=== PATIENT | male | born 1955 | race Caucasian/White ===

== ENCOUNTER 2018-04-06 14:52 | Observation (INO) | payer BC, OTHER ==
[2018-04-06] MEDS ORDERED: ASPIRIN 81 MG CHEWABLE TABLET PO ONE (15:02)
[2018-04-06] MEDS ORDERED: 0.9 % SODIUM CHLORIDE 1000ML 1,000 ML IV PRN (15:02)
--- NOTE | 2018-04-06 15:08 | Emergency Department Record ---
History of Present Illness - General Chief Complaint: Chest Pain Stated Complaint: CHEST PAIN Time Seen by Provider: 04/06/18 14:56 Source: Patient, Family () Mode of Arrival: Ambulatory - History of Present Illness Initial Comments: Pt with from home with CP onset yesterday. Epigastric to left chest with radiation to left jaw and shoulder. Mild AMY without diaphoresis. Worse this AM when tending to his horses in the barn. Pt has hx of untreated "elevated BP ", no DM, No Tobacco, no fam hx of cardiac disease. He had cardiac cath at [facility] 10 years ago without significant disease. Pain is 5 of 10 currently and was 7 of 10 at max. EKG on arrival without ST elevation. MD Complaint: Chest pain Onset/Timin -: Days(s) Onset: During rest Pain Location: Left chest Pain Radiation: Back Severity: Mild Severity scale (1-10): 5 Quality: Aching Consistency: Constant Improves With: Nothing Worsens With: Nothing Anginal Symptoms: Dyspnea, Nausea Treatments Prior to Arrival: Aspirin - Related Data Home Medications Medication Instructions Recorded Confirmed Last Taken Aloe Vera 25 mg PO DAILY 04/06/18 04/06/18 04/06/18 Aspirin [Aspir-Low] 81 mg PO DAILY 04/06/18 04/06/18 04/06/18 Allergies Allergy/AdvReac Type Severity Reaction Status Date / Time No Known Drug Allergies Allergy Verified 04/06/18 14:54 Travel Screening - Travel/Exposure Within Last 30 Days Have you traveled within the last 30 days?: No Review of Systems Constitutional: Denies: Chills, Fever, Malaise Eyes: Denies: Eye discharge, Photophobia ENT: Denies: Congestion, Dental pain Respiratory: Reports: Dyspnea. Denies: Cough, Hemoptysis, Wheezes Cardiovascular: Reports: Chest pain. Denies: Arrhythmia, Dyspnea on exertion, Palpitations, Syncope Endocrine: Denies: Fatigue, Heat or cold intolerance Gastrointestinal: Denies: Abdominal pain, Constipation, Diarrhea Genitourinary: Denies: Discharge Musculoskeletal: Reports: Back pain Skin: Denies: Bruising Neurological: Denies: Abnormal gait Psychiatric: Denies: Anxiety Hematological/Lymphatic: Denies: Anemia Past Medical History - SOCIAL HISTORY Smoking Status: Never smoker Alcohol Use: None Drug Use: None - RESPIRATORY Hx Respiratory Disorders: No - CARDIOVASCULAR Hx Cardio Disorders: Yes Hx Cardiac Cath: Yes Hx Chest Pain: Yes Hx Hypertension: Yes - NEURO Hx Neuro Disorders: No - GI Hx GI Disorders: No - Hx Genitourinary Disorders: No - ENDOCRINE Hx Endocrine Disorders: No - MUSCULOSKELETAL Hx Musculoskeletal Disorders: No - PSYCH Hx Psych Problems: No - HEMATOLOGY/ONCOLOGY Hx Hematology/Oncology Disorders: No Family Medical History Any Significant Family History?: No Physical Exam - General General Appearance: Alert, Oriented x3, Cooperative, Mild distress Limitations: No limitations - Head Head exam: Atraumatic - Eye Eye exam: Normal appearance, PERRL, EOMI - ENT ENT exam: Normal exam, Mucous membranes moist, Normal external ear exam, Normal orophraynx, TM's normal bilaterally - Neck Neck exam: Normal inspection. negative: Lymphadenopathy, Tenderness - Respiratory Respiratory exam: Normal lung sounds bilaterally. negative: Respiratory distress, Rhonchi - Cardiovascular Cardiovascular Exam: Regular rate, Normal rhythm, Normal heart sounds. negative : Tachycardia Peripheral Pulses: 2+: Radial (R), Radial (L), Dorsalis Pedis (R), Dorsalis Pedis (L) - GI/Abdominal GI/Abdominal exam: Soft, Normal bowel sounds. negative: Tenderness - exam: Deferred - Extremities Extremities exam: Normal inspection. negative: Pedal edema, Tenderness - Back Back exam: Reports: Normal inspection. Denies: Paraspinal tenderness - Neurological Neurological exam: Alert, CN II-XII intact, Normal gait, Oriented X3 - Psychiatric Psychiatric exam: Normal affect, Normal mood. negative: Anxious - Skin Skin exam: Normal color. negative: Rash Course Vital Signs 04/06/18 14:56 Pulse Rate 86 Respiratory 16 Rate Blood Pressure 143/85 Pulse Ox 98 Procedures - EKG Initial Date: 04/06/18 Time: 15:07 EKG: Abnormal EKG EKG Detail: RBBB at SR 69. No ST elevation Medical Decision Making - Management Options MDM Management: Additional Work-up Planned (e.g. ADM/Transfer/OP Study) - Data Complexity MDM Data: Labs Ordered and/or Reviewed, X-Ray Ordered and/or Reviewed, EKG Ordered and/or Reviewed - Lab Data Result diagrams: 04/06/18 14:57 04/06/18 15:08 - EKG Data -: EKG Interpreted by Me EKG: Abnormal EKG - Radiology Data Radiology results: Report reviewed, Image reviewed - Medical Decision Making Admission for serial cardiac enzymes and cardiology consultation. Pt and aware of findings and plan Disposition Disposition: Admit Clinical Impression: Chest pain Qualifiers: Chest pain type: precordial pain Qualified Code(s): R07.2 - Precordial pain Disposition: Still a Patient at [facility] Decision to Admit: Admit from ER Decision to Admit Date: 04/06/18 Decision to Admit Time: 16:13 Accepting Physician: Dr. Painting Time Discussed w/Accepting Physician: 16:13 (ABEL Scott) Condition: (2) Stable Forms: Patient Portal Access Quality - Quality Measures Quality Measures: N/A - Blood Pressure Screening Does Patient Have Any of the Following: No Blood Pressure Classification: Pre-Hypertensive BP Reading Systolic Measurement: 143 Diastolic Measurement: 85 Screening for High Blood Pressure: < Pre-Hypertensive BP, F/U Documented > [ G8950] Pre-Hypertensive Follow-up Interventions: Follow-up with rescreen every year.
[2018-04-06] MEDS: NITROGLYCERIN 0.4MG SL TABLET #25 BTL SL PRN ×2 (15:09→15:33)
[2018-04-06 15:11] LABS: HEMATOCRIT 42.9 % (42.0-52.0); HEMOGLOBIN 14.2 gm/dl (14.0-18.0); MEAN CELL VOLUME 87.4 fl (81-97); MEAN CORPUSCULAR HEMOGLOBIN 28.9 pg (27-33); MEAN CORPUSCULAR HGB CONC 33.1 g/dl (32-36); MEAN PLATELET VOLUME 9.4 fl (7.4-10.4); PLATELET COUNT 216 K/uL (130-400); RED BLOOD COUNT 4.91 M/uL (4.40-5.70); RED CELL DISTRIBUTION WIDTH 13.5 % (11.5-14.5); WHITE BLOOD COUNT W/O DIFF 11.3 K/uL (4.2-12.2)
[2018-04-06 15:20] LABS: BLOOD UREA NITROGEN 15 mg/dL (8-23); CREATININE 0.8 mg/dL (0.7-1.2); EST GLOMERULAR FILTRATION RATE > 60 mL/min
[2018-04-06 15:21] LABS: TOTAL PROTEIN 6.9 g/dL (6.6-8.7)
[2018-04-06 15:23] LABS: GLUCOSE,RANDOM 92 mg/dL (74-109)
[2018-04-06 15:24] LABS: INR 1.1; PARTIAL THROMBOPLASTIN TIME 29.3 SECONDS (24.5-39.1); PROTHROMBIN TIME (PATIENT) 10.9 SECONDS (9.5-12.1)
[2018-04-06 15:25] LABS: ALT/SGPT 36 U/L (<41); AST/SGOT 28 U/L (10.0-50.0)
[2018-04-06 15:26] LABS: ALB/GLOB RATIO 1.5 (1.1-1.8); ALBUMIN 4.1 g/dL (4.0-5.0); ALKALINE PHOSPHATASE 89 U/L (40-129)
[2018-04-06 15:36] LABS: THYROID STIMULATING HORMONE 1.69 uIU/mL (0.270-4.20)
[2018-04-06] MEDS ORDERED: ACETAMINOPHEN 325 MG TAB PO PRN (21:47)
[2018-04-07 05:05] LABS: HEMATOCRIT 41.2 % (42.0-52.0); HEMOGLOBIN 13.5 gm/dl (14.0-18.0); MEAN CELL VOLUME 87.7 fl (81-97); MEAN CORPUSCULAR HEMOGLOBIN 28.7 pg (27-33); MEAN CORPUSCULAR HGB CONC 32.8 g/dl (32-36); MEAN PLATELET VOLUME 9.4 fl (7.4-10.4); PLATELET COUNT 205 K/uL (130-400); RED CELL DISTRIBUTION WIDTH 13.4 % (11.5-14.5); WHITE BLOOD COUNT W/O DIFF 9.9 K/uL (4.2-12.2)
[2018-04-07 05:32] LABS: BLOOD UREA NITROGEN 13 mg/dL (8-23); CHOLESTEROL 172 mg/dL (<200); CREATININE 0.7 mg/dL (0.7-1.2); EST GLOMERULAR FILTRATION RATE > 60 mL/min; GLUCOSE,RANDOM 121 mg/dL (74-109); HDL CHOLESTEROL 41 mg/dL (40-60); TRIGLYCERIDES 80 mg/dL (<150); VLDL CHOLESTEROL 16 mg/dL (10.00-40.00)
[2018-04-07 05:41] LABS: PLATELET ESTIMATE NORMAL (NORMAL)
--- NOTE | 2018-04-07 07:44 | RADIOLOGY REPORT ---
EXAM: PORTABLE CHEST HISTORY: CHEST PAIN TODAY. TECHNIQUE: A single portable AP upright view of the chest was performed. Comparison: 05/01/10. FINDINGS: The heart, mediastinum, and pulmonary vasculature are normal. There is minor linear atelectasis or scarring at both lung bases. There are no acute infiltrates or effusions. There is no pneumothorax. There are old healed left clavicle and left upper rib fractures. There are no acute osseous abnormalities. IMPRESSION: NO ACUTE CHEST PATHOLOGY. JOB NUMBER: [id number] [facility] [place]
--- NOTE | 2018-04-07 09:51 | History & Physical ---
History of Present Illness - Date of Service Date of Service for History & Physical: 04/07/18 - History of Present Illness Admitting Diagnosis: Acute Chest Pain History of Present Illness: Jostin Rucker is a 63 year old male who presented to the ER on 04/06 complaining of left sided chest pain radiating to left arm and jaw, combined with numbness, shortness of breath, diaphoresis, severe headache, and vision changes. He stated that his symptoms first began the night before with some dizziness and initial pain and pressure in his chest that prevented him from sleeping. In the morning, his symptoms were greatly exacerbated while doing his morning barn chores and walking up a hill, prompting him to come in to the ER. Prior to his arrival to the ER, he had taken his daily aspirin and some Aleve, which he stated relieved some of his pain. Patient has a history of uncontrolled hypertension, which he states "just got away from him." His only prior episode of chest pain occured eleven years ago, and at that time he had a cardiac cath that showed no evidence of disease, and his symptoms were determined to be from acute stress. He takes baby aspirin daily as well as an aloe vera supplement. Family history is only significant for his father having stents placed, but no other family history of cardiac disease. He has previously had episodes of heartburn/gastric reflux but states that he has not had any episodes in a long time. He took a fall off a horse five to six weeks ago, but states that he did not notice anything besides some soreness at the time of the incident. EKG did not display any ST elevation and troponins have been negative x2. His blood pressure has continued to be elevated but all other vital signs have been within normal limits and stable. This morning, 04/07/18, he states that most of his symptoms have improved. He no longer complains of numbness, shortness of breath, diaphoresis, or vision changes. He still has some discomfort that he describes as now being a pressure localized to the left side of his chest that he rates as a 2 or 3 out of 10. It is no longer painful, or radiating elsewhere. He is able to get up and go to the restroom on his own without any exacerbation of his symptoms, although he thinks strenuous physical exertion would cause exacerbation. He also states he still has a mild headache, but that it is much improved. Pt also reports constipation, last bowel movement was approximately 2 days ago but was a very small amount. Travel Screening - Travel/Exposure Within Last 30 Days Have you traveled within the last 30 days?: No - Travel/Exposure Within Last Year Have you traveled outside the [place] in the last year?: No - Additonal Travel Details Have you been exposed to anyone with a communicable illness?: No - Travel Symptoms Symptom Screening: None Review of Systems Constitutional: Denies: Malaise, Night sweats Eyes: Denies: Vision change Respiratory: Denies: Cough, Dyspnea, Wheezes Cardiovascular: Reports: Chest pain (Chest pressure, 2-3/10). Denies: Dyspnea on exertion, Edema, Palpitations Gastrointestinal: Reports: Constipation (small amount of bm 2 days ago). Denies : Abdominal pain Neurological: Reports: Headache. Denies: Numbness, Weakness Past Medical History - SOCIAL HISTORY Smoking Status: Never smoker Alcohol Use: Rare Drug Use: None - RESPIRATORY Hx Respiratory Disorders: No - CARDIOVASCULAR Hx Cardio Disorders: Yes Hx Cardiac Cath: Yes (2005) Hx Chest Pain: Yes Hx Hypertension: Yes - NEURO Hx Neuro Disorders: No - GI Hx GI Disorders: No - Hx Genitourinary Disorders: No - ENDOCRINE Hx Endocrine Disorders: No - MUSCULOSKELETAL Hx Musculoskeletal Disorders: No - PSYCH Hx Psych Problems: No - HEMATOLOGY/ONCOLOGY Hx Hematology/Oncology Disorders: No Family Medical History Any Significant Family History?: No Hx Heart Disease: Father H&P Meds/Allergies - Allergies Allergies: Allergies Allergy/AdvReac Type Severity Reaction Status Date / Time No Known Drug Allergies Allergy Verified 04/06/18 14:54 - Home Medications Home Medications Medication Instructions Recorded Confirmed Last Taken Aloe Vera 25 mg PO DAILY 04/06/18 04/06/18 04/06/18 Aspirin [Aspir-Low] 81 mg PO DAILY 04/06/18 04/06/18 04/06/18 - Active Medications Active Medications: Current Medications Acetaminophen (Tylenol 325mg) 650 mg PO Q4H PRN PRN Reason: PAIN - MILD(1-4)/FEVER Aspirin (Ecotrin (Ec)) 81 mg PO DAILY [facility] Last Admin: 04/07/18 09:06 Dose: 81 mg Lisinopril (Zestril) 5 mg PO DAILY [facility] Nitroglycerin (Nitrostat 0.4mg) 0.4 mg SL Q5MIN PRN PRN Reason: CHEST PAIN Last Admin: 04/06/18 15:33 Dose: 0.4 mg Physical Exam - Vital Signs Vital Signs: Vital Signs - Last 24 Hrs Temp Pulse Pulse Pulse Resp BP BP 04/07/18 05:46 04/07/18 04:00 98.2 F 94 H 17 149/98 04/07/18 00:00 98.0 F 97 H 16 144/98 04/06/18 23:40 81 04/06/18 21:47 97.8 F 64 16 148/91 04/06/18 21:28 97.7 F 62 16 146/97 04/06/18 19:10 75 18 133/79 04/06/18 17:27 62 18 04/06/18 16:14 72 18 127/87 04/06/18 15:42 79 20 93/60 04/06/18 15:34 71 18 116/66 04/06/18 15:14 92 H 20 105/73 04/06/18 15:10 69 18 133/79 04/06/18 14:56 97.7 F 86 16 143/85 Pulse Ox 04/07/18 05:46 97 04/07/18 04:00 96 04/07/18 00:00 97 04/06/18 23:40 97 04/06/18 21:47 97 04/06/18 21:28 97 04/06/18 19:10 98 04/06/18 17:27 97 04/06/18 16:14 96 04/06/18 15:42 95 04/06/18 15:34 96 04/06/18 15:14 94 L 04/06/18 15:10 96 04/06/18 14:56 98 - General General Appearance: Alert, Oriented x3, Cooperative, No acute distress Limitations: No limitations - Head Head exam: Atraumatic - Eye Eye exam: Normal appearance, PERRL, EOMI - ENT ENT exam: Normal exam, Mucous membranes moist - Respiratory Respiratory exam: Normal lung sounds bilaterally. negative: Respiratory distress, Rhonchi, Wheezes - Cardiovascular Cardiovascular Exam: Regular rate, Normal rhythm, Normal heart sounds. negative : Tachycardia Peripheral Pulses: 2+: Radial (R), Radial (L), Dorsalis Pedis (R), Dorsalis Pedis (L) - GI/Abdominal GI/Abdominal exam: Soft, Normal bowel sounds, Hernia. negative: Tenderness - exam: Deferred - Extremities Extremities exam: Normal inspection. negative: Pedal edema, Tenderness - Back Back exam: Reports: Normal inspection. Denies: Paraspinal tenderness - Neurological Neurological exam: Alert, CN II-XII intact, Normal gait, Oriented X3 - Psychiatric Psychiatric exam: Normal affect, Normal mood. negative: Anxious - Skin Skin exam: Normal color. negative: Rash Results - Labs Result Diagrams: 04/07/18 04:55 04/07/18 04:55 Labs Last 24 Hours: Laboratory Results - last 24 hr 04/06/18 04/06/18 04/06/18 14:57 15:08 15:08 WBC 11.3 RBC 4.91 Hgb 14.2 Hct 42.9 MCV 87.4 MCH 28.9 MCHC 33.1 RDW 13.5 Plt Count 216 MPV 9.4 Neutrophils % 92.0 H Band Neutrophils % Eosinophils % Not Reportable Basophils % Not Reportable Lymphocytes 5.0 L Monocytes 3.0 Platelet Estimate RBC Morphology PT 10.9 INR 1.1 APTT 29.3 D-Dimer 0.57 Sodium 138 Potassium 3.7 Chloride 98 Carbon Dioxide 26.0 Anion Gap 14.0 BUN 15 Creatinine 0.8 Estimated GFR > 60 Random Glucose 92 Calcium 9.7 Total Bilirubin 1.10 H AST 28 ALT 36 Alkaline Phosphatase 89 Troponin T < 0.010 Total Protein 6.9 Albumin 4.1 Globulin 2.8 Albumin/Globulin Ratio 1.5 Triglycerides Cholesterol LDL Cholesterol Measurd VLDL Cholesterol HDL Cholesterol TSH 1.69 04/06/18 04/06/18 04/07/18 21:47 22:55 04:55 WBC 9.9 RBC 4.70 Hgb 13.5 L Hct 41.2 L MCV 87.7 MCH 28.7 MCHC 32.8 RDW 13.4 Plt Count 205 MPV 9.4 Neutrophils % 73.0 Band Neutrophils % 3.0 Eosinophils % Not Reportable Basophils % Not Reportable Lymphocytes 11.0 L Monocytes 13.0 H Platelet Estimate Normal RBC Morphology Normal PT INR APTT D-Dimer Sodium Potassium Chloride Carbon Dioxide Anion Gap BUN Creatinine Estimated GFR Random Glucose Calcium Total Bilirubin AST ALT Alkaline Phosphatase Troponin T < 0.010 Total Protein Albumin Globulin Albumin/Globulin Ratio Triglycerides Cancelled Cholesterol Cancelled LDL Cholesterol Measurd Cancelled VLDL Cholesterol Cancelled HDL Cholesterol Cancelled TSH 04/07/18 04/07/18 04:55 04:55 WBC RBC Hgb Hct MCV MCH MCHC RDW Plt Count MPV Neutrophils % Band Neutrophils % Eosinophils % Basophils % Lymphocytes Monocytes Platelet Estimate RBC Morphology PT INR APTT D-Dimer Sodium 138 Potassium 4.0 Chloride 100 Carbon Dioxide 24.0 Anion Gap 14.0 BUN 13 Creatinine 0.7 Estimated GFR > 60 Random Glucose 121 H Calcium 9.2 Total Bilirubin AST ALT Alkaline Phosphatase Troponin T < 0.010 Total Protein Albumin Globulin Albumin/Globulin Ratio Triglycerides 80 Cholesterol 172 LDL Cholesterol Measurd 129.0 H VLDL Cholesterol 16 HDL Cholesterol 41 TSH - Imaging and Cardiology Chest x-ray Status: Report reviewed VTE H&P Assessment - Risk for VTE Risk for VTE: Yes Risk Level: Moderate Risk Assessment Date: 04/07/18 Risk Assessment Time: 09:58 VTE Orders Placed or Will Be Placed: Yes VTE Reason for No Prophylaxis: Not Indicated (Patient is ambulatory; will encourage ambulation) AMI H&P Plan - EKG Initial Date: 04/06/18 Time: 15:07 EKG: Abnormal EKG EKG Detail: RBBB at SR 69. No ST elevation Plan - Detailed Diagnosis and Plan (1) Chest pain Current Visit: Yes Status: Acute Qualifiers: Chest pain type: precordial pain Qualified Code(s): R07.2 - Precordial pain Base Code: R07.9 - CHEST PAIN, UNSPECIFIED Comment: 04/07/18: -troponins negative x 2; third troponin pending -cardiology consult ordered -EKG normal with no ST elevation -continue aspirin and telemetry monitoring continously -D/C pending cardiology consult and recommendations (2) Hypertension Current Visit: Yes Status: Acute Base Code: I10 - ESSENTIAL (PRIMARY) HYPERTENSION Comment: 04/07/18: -BPs have been continously elevated, last BP was 162/95 -start on lisinopril 5mg daily -perform patient education and encourage following up with PCP to manage hypertension (3) Headache Current Visit: Yes Status: Acute Base Code: R51 - HEADACHE Comment: : -continue with tylenol as needed (4) Constipation Current Visit: Yes Status: Acute Base Code: K59.00 - CONSTIPATION, UNSPECIFIED Comment: 04/07/18: -give 17g Miralax as needed (5) Full code status Current Visit: Yes Status: Acute Base Code: Z78.9 - OTHER SPECIFIED HEALTH STATUS Comment: 04/07/18: Patient is full code this admission (6) DVT prophylaxis Current Visit: Yes Status: Acute Base Code: [id number] - Comment: 04/07/18: -Patient ambulatory with no mobility issues -Nursing to encourage ambulation
[2018-04-07] MEDS ORDERED: LISINOPRIL 5 MG TABLET PO SCH (10:00)
[2018-04-07] MEDS ORDERED: ASPIRIN 81 MG TABEC PO SCH (10:00)
[2018-04-07] MEDS ORDERED: POLYETHYLENE GLY 17 GM PACKET PO SCH (10:15)
--- NOTE | 2018-04-07 13:34 | Discharge Summary ---
Providers Discharge Summary Date: 04/07/18 Date of admission: 04/07/18 01:31 Attending physician: SANDY MCKAY Primary care physician: JOSIAS GREEN D.O. 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 Physical Exam - Vital Signs Vital Signs: Vital Signs - Last 24 Hrs Temp Pulse Pulse Pulse Resp BP BP 04/07/18 10:44 82 16 04/07/18 08:30 92 H 16 04/07/18 08:25 62 94 H 16 04/07/18 08:20 97.7 F 92 H 16 162/95 04/07/18 05:46 04/07/18 04:00 98.2 F 94 H 17 149/98 04/07/18 00:00 98.0 F 97 H 16 144/98 04/06/18 23:40 81 04/06/18 21:47 97.8 F 64 16 148/91 04/06/18 21:28 97.7 F 62 16 146/97 04/06/18 19:10 75 18 133/79 04/06/18 17:27 62 18 04/06/18 16:14 72 18 127/87 04/06/18 15:42 79 20 93/60 04/06/18 15:34 71 18 116/66 04/06/18 15:14 92 H 20 105/73 04/06/18 15:10 69 18 133/79 04/06/18 14:56 97.7 F 86 16 143/85 Pulse Ox 04/07/18 10:44 98 04/07/18 08:30 04/07/18 08:25 04/07/18 08:20 04/07/18 05:46 97 04/07/18 04:00 96 04/07/18 00:00 97 04/06/18 23:40 97 04/06/18 21:47 97 04/06/18 21:28 97 04/06/18 19:10 98 04/06/18 17:27 97 04/06/18 16:14 96 04/06/18 15:42 95 04/06/18 15:34 96 04/06/18 15:14 94 L 04/06/18 15:10 96 04/06/18 14:56 98 - General General Appearance: Alert, Oriented x3, Cooperative, No acute distress Limitations: No limitations - Head Head exam: Atraumatic - Eye Eye exam: Normal appearance, PERRL, EOMI - ENT ENT exam: Normal exam, Mucous membranes moist - Neck Neck exam: Normal inspection. negative: Lymphadenopathy, Tenderness - Respiratory Respiratory exam: Normal lung sounds bilaterally. negative: Respiratory distress, Rhonchi, Wheezes - Cardiovascular Cardiovascular Exam: Regular rate, Normal rhythm, Normal heart sounds. negative : Tachycardia Peripheral Pulses: 2+: Radial (R), Radial (L), Dorsalis Pedis (R), Dorsalis Pedis (L) - GI/Abdominal GI/Abdominal exam: Soft, Normal bowel sounds, Hernia. negative: Tenderness - exam: Deferred - Extremities Extremities exam: Normal inspection. negative: Pedal edema, Tenderness - Back Back exam: Reports: Normal inspection. Denies: Paraspinal tenderness - Neurological Neurological exam: Alert, CN II-XII intact, Normal gait, Oriented X3 - Psychiatric Psychiatric exam: Normal affect, Normal mood. negative: Anxious - Skin Skin exam: Normal color. negative: Rash Hospitalization - Hospitalization Admission Diagnosis: Acute Chest Pain - Problem List/Discharge Diagnosis (1) Chest pain Current Visit: Yes Status: Acute Discharge Diagnosis: Chest pain type: precordial pain Qualified Code(s): R07.2 - Precordial pain Base Code: R07.9 - CHEST PAIN, UNSPECIFIED Comment: 04/07/18: -troponins negative x 2; third troponin pending -cardiology consult ordered -EKG normal with no ST elevation -continue aspirin and telemetry monitoring continously -D/C pending cardiology consult and recommendations (2) Hypertension Current Visit: Yes Status: Acute Base Code: I10 - ESSENTIAL (PRIMARY) HYPERTENSION Comment: 04/07/18: -BPs have been continously elevated, last BP was 162/95 -start on lisinopril 5mg daily -perform patient education and encourage following up with PCP to manage hypertension (3) Headache Current Visit: Yes Status: Acute Base Code: R51 - HEADACHE Comment: : -continue with tylenol as needed (4) Constipation Current Visit: Yes Status: Acute Base Code: K59.00 - CONSTIPATION, UNSPECIFIED Comment: 04/07/18: -give 17g Miralax as needed (5) Full code status Current Visit: Yes Status: Acute Base Code: Z78.9 - OTHER SPECIFIED HEALTH STATUS Comment: 04/07/18: Patient is full code this admission (6) DVT prophylaxis Current Visit: Yes Status: Acute Base Code: [id number] - Comment: 04/07/18: -Patient ambulatory with no mobility issues -Nursing to encourage ambulation - Hospitalization Course Procedures: Imaging and X-Rays 04/06/18 15:02 CHEST 1 VIEW [RAD] Stat Cardiology Procedures 04/06/18 15:01 EKG ONCE 04/06/18 15:02 Conservation Agent NOW 04/06/18 21:47 Conservation Agent .Continuous EKG QDX2@0600 Abnormal Labs: Abnormal Lab Results 04/06/18 04/06/18 04/07/18 Range/Units 14:57 15:08 04:55 Hgb 13.5 L (14.0-18.0) gm/dl Hct 41.2 L (42.0-52.0) % Neutrophils % 92.0 H (47-80) % Lymphocytes 5.0 L 11.0 L (16-45) % Monocytes 13.0 H (0-9) % Random Glucose (74-109) mg/dL Total Bilirubin 1.10 H (0.2-1.0) mg/dL LDL Cholesterol Measurd (0-100) mg/dL 04/07/18 Range/Units 04:55 Hgb (14.0-18.0) gm/dl Hct (42.0-52.0) % Neutrophils % (47-80) % Lymphocytes (16-45) % Monocytes (0-9) % Random Glucose 121 H (74-109) mg/dL Total Bilirubin (0.2-1.0) mg/dL LDL Cholesterol Measurd 129.0 H (0-100) mg/dL Condition at Discharge: (2) Stable Discharge Medications - Discharge Medications Prescriptions: Lisinopril [Zestril] 5 mg PO DAILY #30 tablet Home Medications: Ambulatory Orders Aloe Vera 25 mg PO DAILY 04/06/18 [Last Taken 04/06/18] Aspirin [Aspir-Low] 81 mg PO DAILY 04/06/18 [Last Taken 04/06/18] Lisinopril [Zestril] 5 mg PO DAILY #30 tablet 04/07/18 [Last Taken Unknown] Polyethylene Glycol 3350 [Miralax] 17 gm PO DAILY packet 04/07/18 [Last Taken Unknown] Discharge Plan - Discharge Instructions Activity at Discharge: Increase Activity as Tolerated Instructions: Chest Pain (DC), Chronic Hypertension (DC) Additional Instructions: 2 Activity: as tolerated 2 Diet: cardiac 2 Consults: [] 2 Follow Up: [With Primary Care Provider as needed] 2 Dressing/Wound Care: (Type) (Change) 2 Additional: [Appt for ECHO and first part of stress test Thursday04/12/18 at 11: 00am. Second part of stress test on Thursday04/13/18. Follow up appt with Dr. Leo at [facility] 04/14/18 at 2:00pm. Return to ED for any new onset chest pain, shortness of breath, any new symptoms. ] Quality Measures - Quality Measures Quality Measures: Documentation of Current Medications in Medical Record, Screening for High Blood Pressure and F/U Documented - Current Medications Quality Measure: Measure #130: Documentation of Current Medications Documentation of Current Medications: <Current Medications Documented/Reviewed> [G8427] - Blood Pressure Screening Quality Measure: Screening for High Blood Pressure and Follow-Up Documented Does Patient Have Any of the Following: Active Dx of HTN Blood Pressure Classification: Pre-Hypertensive BP Reading Systolic Measurement: 143 Diastolic Measurement: 85 Screening for High Blood Pressure: Patient Exclusion, Hx of HTN [G9744] - Elder Abuse Suspicion Index EASI Reference Information: Laura GARCIA, Ismael C, Sonia D, Jacqueline Gutierrez.Development and validation of a tool to assist physicians identification of elder abuse: The Elder Abuse Suspicion Index (EASI ). Journal of Elder Abuse and Neglect, 2008; 20 (3): 276-300.
--- NOTE | 2018-04-07 20:56 | Cardiology Consult ---
DATE: 04/07/2018 INDICATION FOR CONSULT: CHEST PAIN. Mr. Rucker is 63 years old, who presented to [facility] on 04/06 with complaints of left-sided chest pain radiating to the arm and jaw. He states this occurred on two different episodes, one with rest and one with exertional activity. He noted some dizziness and numbness with these symptoms. On arrival to [facility], he had an ECG demonstrating sinus rhythm with a right bundle branch block pattern. His troponins during his hospitalization have been negative. He has a history of hypertension that is currently not well controlled and hyperlipidemia. He states he has intolerance to statins and therefore has not taken any medications. He denies history of diabetes mellitus, tobacco use, or significant family history of coronary artery disease. His father had stents placed in his late 70's. He is physically active and works with horses. PAST MEDICAL HISTORY: His past medical history includes hypertension, hyperlipidemia. PAST SURGICAL HISTORY: Right knee replacement and appendectomy. MEDICATIONS INCLUDE: Aspirin 81 mg daily. ALLERGIES: NONE. SOCIAL HISTORY: He denies alcohol or tobacco use. FAMILY HISTORY: No significant history of coronary artery disease. PHYSICAL EXAM: GENERAL: He is afebrile. VITAL SIGNS: Blood pressure is 149/98. Pulse was 94, respirations 17. LABORATORY: His white count is 9.9. Hemoglobin 13.5. Platelets 205,000. Sodium 138. Potassium 4.0. BUN13. Creatinine 0.7. Glucose 121. Troponins were negative x2. Total cholesterol is 172. LDL 129. HCL 41. Triglycerides 80. IMPRESSION/PLAN: Mr. Rucker has history of hypertension and hyperlipidemia, who presents with recurrent left substernal chest pressure. His ECG and troponins currently are negative. At this time, he would like to be discharged for outpatient follow- up. Will plan on an echocardiogram and stress Cardiolite at his earliest convenience in the next 48 to 72 hours. Will plan follow-up in our outpatient office within the week to review his test results. Mr. Rucker is agreeable to this plan. He can be discharged with Aspirin 81 mg daily and Lisinopril 5 mg daily. We will titrate his ELVIS inhibitor based on his blood pressure when we see him next week. JOB NUMBER: [id number] MTDD
== END 2018-04-07 19:15 | disposition home or self-care (01) ==
LOC: ER 14:52 → MEDSURG 21:44 → UNDOADMIN 21:44 → MEDSURG 04-07 01:31 → INTOOBSV 04-07 01:31
PROVIDERS: ADMIT Internal Medicine; ATTEND Internal Medicine
DX: R07.9 Chest pain, unspecified (principal); R06.02 Shortness of breath; R11.0 Nausea; I10 Essential (primary) hypertension; Z95.811 Presence of heart assist device; R51 Headache; K59.00 Constipation, unspecified
CPT/HCPCS: 71045; 80048; 80053; 80061; 84443; 84484; 85027; 85379; 85610; 85730; 93005; 93010; 94760; 99220; 99285